=== PATIENT | female | born 1940 | race Caucasian/White ===

== ENCOUNTER → 2016-07-11 | Outpatient (CLI) | payer MEDICARE, BC ==
--- NOTE | 2016-07-11 13:21 | XR ---
EXAMINATION TYPE: XR cervical spine limited DATE OF EXAM: 07/11/2016 9:56 AM COMPARISON: NONE HISTORY: 75-year-old female cervical spine pain TECHNIQUE: 3 views FINDINGS: No predental space widening or prevertebral soft tissue swelling. Moderate disc/endplate degenerative change at C5-C6 with endplate spondylosis and disc interspace narrowing. Mild at multiple other leve ls. Multilevel facet and uncovertebral joint arthropathy is present. The cervicothoracic junction is obsc ured by the patient's shoulders and not assessed. Cervical alignment is otherwise maintained. Subopti mal odontoid view despite multiple attempts. IMPRESSION: 1. Moderate multilevel spondylotic change. No malalignment. 2. The cervicothoracic junction is obscured by the patient's shoulders and not assessed. Remainder of the cervical spine alignment is maintained.
== END | disposition home or self-care (01) ==
LOC: RADXRMAIN 09:41
PROVIDERS: ATTEND Family Medicine
DX: M47.812 Spondylosis without myelopathy or radiculopathy, cervical region (principal)
CPT/HCPCS: 72040

== ENCOUNTER → 2016-09-27 | Outpatient (CLI) | payer MEDICARE, BC ==
--- NOTE | 2016-09-27 13:26 | XR ---
EXAMINATION TYPE: XR lumbosacral spine min 4V DATE OF EXAM: 09/27/2016 11:24 AM COMPARISON: NONE HISTORY: Low back pain times weeks TECHNIQUE: 5 view lumbar spine FINDINGS: There 5 lumbar-type vertebral bodies. The pedicles are intact. Scoliosis is present. Facet degenerative changes present off is greater in the L4-5 L5-S1 level on the right throughout the right facets. Disc space narrowing is present L2-L3 posteriorly L3-4 present L5-S1 disc space narrowing ma y be present. Vascular calcifications within the aorta. IMPRESSION: 1. Degenerative disc changes. 2. Facet changes greater on the right and lower lumbar spine regions bilaterally
== END | disposition home or self-care (01) ==
LOC: RADXRMAIN 10:58
PROVIDERS: ATTEND Family Medicine
DX: M51.36 Other intervertebral disc degeneration, lumbar region (principal)
CPT/HCPCS: 72110

== ENCOUNTER → 2016-10-03 | Outpatient (CLI) | payer MEDICARE, BC ==
--- NOTE | 2016-10-03 20:51 | CT ---
EXAMINATION TYPE: CT abdomen pelvis w con DATE OF EXAM: 10/03/2016 7:13 PM HISTORY: RLQ pain through to the back CT DLP: 1653mGycm Automated Exposure Control for Dose Reduction was Utilized. CONTRAST: CT scan of the abdomen and pelvis is performed with IV Contrast, patient injected with 100 mL of Omni paque 300. COMPARISON: None. FINDINGS: LUNG BASES: Coronary artery calcification is present. LIVER/GB: Cholecystectomy clips are seen. PANCREAS: No significant abnormality is seen. SPLEEN: No significant abnormality is seen. ADRENALS: No significant abnormality is seen. KIDNEYS: No significant abnormality is seen. BOWEL: The oral contrast reaches level of the distal ileum. There is no suspicious small or large bow el dilatation. There are prominent diverticula throughout the visualized colon including sigmoid colo n but no convincing CT evidence for acute diverticulitis. There are sutures or clips from appendectom y noted seen best on coronal image 47 extending superiorly from base of cecum. UTERUS/ADNEXA: Uterus is surgically absent or markedly atrophic in appearance. LYMPH NODES: No greater than 1cm abdominal or pelvic lymph nodes are appreciated. OSSEOUS STRUCTURES: Metallic hardware from right hip arthroplasty is seen causing adjacent streak art ifact limiting evaluation of pelvic structures. There is transitional-type vertebra lumbosacral junct ion. There is levoconvex scoliosis centered at L2-L3 level. There are spurring with disc space narrow ing and sclerosis at right L2-L3 level. Multilevel spurring in thoracic spine is present. OTHER: There is moderate atherosclerotic change of aorta extending into pelvic branch vessels. IMPRESSION: Prominent advanced diffuse colonic diverticulosis without convincing CT evidence for acut e diverticulitis. No significant acute finding is clearly seen to account for patient's symptoms.
== END | disposition home or self-care (01) ==
LOC: RADCTMAIN 18:49
PROVIDERS: ATTEND Family Medicine
DX: K57.30 Diverticulosis of large intestine without perforation or abscess without bleeding (principal); R10.31 Right lower quadrant pain
CPT/HCPCS: 74177; Q9967

== ENCOUNTER 2016-11-11 07:33 | Day surgery (SDC) | payer MEDICARE, BC ==
[2016-11-10 08:19] VITALS: BMI 29.9
[~2016-11-11 07:33] MED LIST: LACTATED RINGERS 1,000 ML IV SCH
[2016-11-11 08:06] VITALS: TEMP 97
[2016-11-11] MEDS ORDERED: LIDOCAINE 1% 20 ML VIAL (10MG/ML) FOR IV START SQ ONE (08:08)
[2016-11-11] MEDS ORDERED: LIDOCAINE 1% INJ 10MG/ML (20 ML MDV) ONE (08:35)
[2016-11-11] MEDS ORDERED: PROPOFOL 10 MG/ML 20 ML VIAL IV ONE (08:35)
--- NOTE | 2016-11-11 08:56 | P.PCN ---
Date of Procedure: 11/11/16 Preoperative Diagnosis: Postoperative Diagnosis: Procedure(s) Performed: BRIEF HISTORY: Patient is a 76-year-old pleasant white female, scheduled for an elective colonoscopy as a part of screening for colorectal neoplasia. PROCEDURE PERFORMED: Colonoscopy with biopsy. PREOPERATIVE DIAGNOSIS: Screening for colon cancer. IV sedation per Anesthesia. PROCEDURE: After informed consent was obtained, the patient, was brought into the endoscopy unit. IV sedation was administered by Anesthesia under continuous monitoring. Digital rectal examination was normal. Initially the Olympus CF- 160 flexible video colonoscope was then inserted in the rectum, gradually advanced into the cecum without any difficulty. Careful examination was performed as the scope was gradually being withdrawn. Ileocecal valve and the appendiceal orifice were visualized and appeared normal. Prep was excellent. Mucosa of the cecum, ascending colon, appeared normal. In the transverse colon there was a 5 mm polyp that was removed by biopsy. Rest of the transverse colon , descending colon, sigmoid colon, and rectum appeared normal. Moderate sigmoid diverticulosis seen. Retroflexion was performed in the rectum and no lesions were seen. The patient tolerated the procedure well. IMPRESSION: 5 mm transverse colon polyp status post biopsy Moderate sigmoid diverticulosis RECOMMENDATIONS: Findings of this examination were discussed with the patient as well as a family. She was advised to have follow with the biopsy results and if the biopsy shows a tumor adenoma she can have a repeat colonoscopy in 5 years. Implants: Indications for Procedure: Operative Findings: Description of Procedure:
[2016-11-11 09:47] VITALS: BP 131/73; PULSE 51; RESP 16
== END 2016-11-11 10:03 | disposition home or self-care (01) ==
LOC: ORWHC2ENDO 07:33
PROVIDERS: ATTEND Internal Medicine Gastroenterology
DX: Z12.11 Encounter for screening for malignant neoplasm of colon (principal); D12.3 Benign neoplasm of transverse colon; K57.30 Diverticulosis of large intestine without perforation or abscess without bleeding
CPT/HCPCS: 88305; 45380; J2001; J2704